=== PATIENT | male | born 1950 | race Caucasian/White ===

== ENCOUNTER 2017-08-20 12:18 | Inpatient (IN) | payer MEDICARE, MEDICAID ==
[~2017-08-20] VITALS: Ht 170.2 cm; Wt 72.6 kg
--- NOTE | 2017-08-20 12:35 | NUR ---
PT FROM THE ED HALLWAY WAITING AREA TO ED BED 08. PT WAS BB PRIVATE EMS FROM [facility] FOR NEEMA RECTAL ABSCESS SINCE THE WEEKEND. NAD VSS RR EVEN AND UNLABORED. SKIN IS WARM AND NON DIAPHROETIC, PENDING ER MD EVALUATION
[2017-08-20 13:28] LABS: BASOPHILS # (AUTO) 0.3 /CMM (0.0-0.2); BASOPHILS % (AUTO) 1.7 % (0.0-2.0); EOSINOPHILS % (AUTO) 0.6 % (0.0-6.0); HEMATOCRIT 41 % (39-51); HEMOGLOBIN 13.9 g/dL (13.5-17.5); LYMPHOCYTES # (AUTO) 1.5 /CMM (0.8-4.8); LYMPHOCYTES % (AUTO) 10.2 % (20.0-44.0); MEAN CORPUSCULAR HGB CONC 35 g/dl (31.0-36.0); MEAN CORPUSCULAR VOLUME 88 fL (80-96); MONOCYTES # (AUTO) 0.9 /CMM (0.1-1.30); MONOCYTES % (AUTO) 5.7 % (2.0-12.0); NEUTROPHILS # (AUTO) 12.4 /CMM (1.8-8.9); NEUTROPHILS % (AUTO) 81.8 % (43.0-81.0); PLATELET COUNT (AUTO) 399 /CMM (150-450); RDW COEFFICIENT OF VARIATION 13.2 (11.5-15.0); WHITE BLOOD COUNT (AUTO) 15.2 K/uL (4.3-11.0)
[2017-08-20] MEDS ORDERED: IV NS 0.9% 500 ML BAG IV ONE (13:30)
[2017-08-20 13:39] LABS: CALCIUM, SERUM 9.8 mg/dL (8.5-10.1); CARBON DIOXIDE 24 mmol/L (21-32); CHLORIDE 100 mmol/L (98-107); CREATININE 0.7 mg/dL (0.6-1.3); GLUCOSE 176 mg/dL (74-106); POTASSIUM 3.5 mmol/L (3.5-5.1); SODIUM SERUM 137 mmol/L (136-145); UREA NITROGEN, BLOOD 11 mg/dL (7-18)
[2017-08-20 13:42] LABS: INR 1.06 (0.85-1.15)
[2017-08-20 13:44] LABS: ALANINE AMINOTRANSFERASE 18 U/L (12-78); ALBUMIN 3.1 g/dL (3.4-5.0); ALKALINE PHOSPHATASE 66 U/L (46-116); ASPARTATE AMINOTRANSFERASE 12 U/L (15-37); BILIRUBIN,DIRECT 0.2 mg/dL (0.0-0.2); BILIRUBIN,TOTAL 0.5 mg/dL (0.2-1.0); TOTAL PROTEIN, SERUM 8.6 g/dL (6.4-8.2)
[2017-08-20 13:47] LABS: TROPONIN I < 0.017 ng/mL (0.00-0.056)
--- NOTE | 2017-08-20 14:05 | NUR ---
XRAY in progress at BS.
[2017-08-20] MEDS ORDERED: IV NS 0.9% 1,000 ML BAG IV ONE (14:30)
[2017-08-20 14:45] LABS: BAND % (MANUAL) 2 % (0.0-5.0); LYMPHOCYTES % (MANUAL) 16 % (16-48); MONOCYTES % (MANUAL) 9 % (0-11.0); NEUTROPHILS % (MANUAL) 73 (42-76)
[2017-08-20] MEDS ORDERED: IOHEXOL-300 100 ML VIAL IV ONE (14:50)
[2017-08-20] MEDS ORDERED: IV NS 0.9% 250 ML IV ONE (14:50)
[2017-08-20] MEDS ORDERED: VANCOMYCIN 1 GM in IV D5W 250 ML IV ONE (15:00)
[2017-08-20] MEDS ORDERED: PIPERACILLIN /TAZOBACTAM 3.375 G in IV D5W 50 ML IV ONE (15:00)
--- NOTE | 2017-08-20 15:00 | NUR ---
DR DAIGLE AT FOR WOUND CARE.
[2017-08-20] MEDS ORDERED: METF-442 PO (15:20)
[2017-08-20] MEDS ORDERED: NA P133E RC (15:20)
[2017-08-20] MEDS ORDERED: PIOG15TA8 PO (15:20)
[2017-08-20] MEDS ORDERED: ACET-868 PO (15:20)
[2017-08-20] MEDS ORDERED: APIX5TAB PO (15:20)
[2017-08-20] MEDS ORDERED: ATOR40TA PO (15:20)
[2017-08-20] MEDS ORDERED: MAGN400O6 GT (15:20)
[2017-08-20] MEDS ORDERED: DOCU100C36 PO (15:20)
[2017-08-20] MEDS ORDERED: BISA10SU8 RC (15:20)
[2017-08-20] MEDS ORDERED: DONE5TAB34 PO (15:20)
[2017-08-20] MEDS ORDERED: INSU100I30 SQ (15:20)
[2017-08-20] MEDS ORDERED: MEMA10TA PO (15:20)
--- NOTE | 2017-08-20 15:45 | NUR ---
Patient is resting comfortably in bed with eyes closed. Easily aroused. VSS
--- NOTE | 2017-08-20 16:23 | NUR ---
CALLED NURSING SUP. FOR MS BED
--- NOTE | 2017-08-20 16:25 | NUR ---
Patient is resting comfortably in bed with eyes closed. Easily aroused. VSS
--- NOTE | 2017-08-20 16:34 | NUR ---
CE PAGED, TERESA STERLING CVICU RN
[2017-08-20] MEDS ORDERED: LORAZEPAM INJ 2 MG/ML VIAL ONE (17:17)
--- NOTE | 2017-08-20 17:24 | NUR ---
REPORT GIVEN TO CINDY RODRIGUEZ FOR LEVY MS [id number]
[2017-08-20] MEDS ORDERED: LORAZEPAM INJ 2 MG/ML VIAL IV ONE (17:30)
[2017-08-20] MEDS ORDERED: MAGNESIUM HYDROXIDE 30 ML UDC GT PRN (18:30)
[2017-08-20] MEDS ORDERED: Z GUARD REMEDY 2 OZ OINT TP PRN (18:30)
[2017-08-20] MEDS ORDERED: DEXTROSE 50%-WATER 50 ML DISP.SYRIN IV PRN (18:30)
[2017-08-20] MEDS ORDERED: ONDANSETRON HCL/PF 4 MG/2 ML VIAL IVP PRN (18:30)
[2017-08-20] MEDS ORDERED: ACETAMINOPHEN 325 MG TABLET PO PRN (18:30)
[2017-08-20 18:37] VITALS: BP 133/74
[2017-08-20] MEDS ORDERED: APIXABAN 5 MG TABLET PO ONE (18:45)
--- NOTE | 2017-08-20 19:30 | NUR ---
MSRN FULLY AWAKE, DISCONNECTED FROM IV. WANTED TO GO AROUND HALLWAYS VIA WHEELCHAIR WITH HIS FRIEND. LEFT SHOULDER DRESSING DRY AND INTACT. TO CONTINUE.
--- NOTE | 2017-08-20 19:35 | NUR ---
MSRN FULLY AWAKE, PLEASANTLY CONFUSED. WAS MOVED TO ROOM 309-1. BED ALARM ON, SAFETY PRECAUTIONS EMPHASIZED, APPEARS TO UNDERSTAND, PATIENT IS FORGETFUL. NEEDS CLOSE OBSERVATION. REFUSED TO EAT LATE DINNER.
[2017-08-20 20:00] VITALS: BP 137/74
--- NOTE | 2017-08-20 20:30 | NUR ---
MSRN AGREED TO EAT SANDWICH AND JUICE, PATIENT IS DIABETIC. BLOOD SUGAR PRIOR TO DINNER WAS 161. WILL GIVE INSULIN COVERAGE. TRIED TO GET OOB EARLIER WITHOUT CALLING, UNSTEADY GAIT, HFR. PROVIDED FFW. VOIDED FREELY. ASSISTED BACK TO BED BY EXCAVATING MACHINE OPERATOR. CLOSELY WATCHED. KEPT COMFORTABLE, CALL LIGHT USE REVIEWED WITH PATIENT, STATED HE UNDERSTOOD. BED ALARM ON.
--- NOTE | 2017-08-20 20:57 | NUR ---
MSRN VERBALIZES SEVERE LEFT SHOULDER PAIN, DILAUDED 1MG IVP ADMINISTERED VIA RIGHT UPPER ARM PICC LINE. BEDREST INSTRUCTED, FRIEND AT BEDSIDE.
--- NOTE | 2017-08-20 21:40 | NUR ---
MSRN DUE MEDS ADMINISTERED. NO OTHER NEEDS MADE, SAFETY AWARENESS REMINDED. NEEDS CLOSER OBSERVATION
[2017-08-20] MEDS: DONEPEZIL 5 MG TABLET PO SCH (21:43)
[2017-08-20] MEDS: ATORVASTATIN 40 MG TABLET PO SCH (21:43)
[2017-08-20] MEDS: BLOOD SUGAR DIAGNOSTIC 1 EACH STRIP IN SCH (21:43)
[2017-08-20] MEDS: INSULIN REGULAR, HUMAN 100 UNIT/ML 3 ML VIAL SQ PRN (21:47)
[2017-08-20] MEDS ORDERED: ZOLPIDEM TARTRATE 5 MG TABLET PO PRN (22:00)
--- NOTE | 2017-08-21 01:00 | NUR ---
MSRN SLEPT GOOD, APPEARS COMFORTABLE
--- NOTE | 2017-08-21 05:30 | NUR ---
MSRN AWAKENED BY BLOOD DRAW, BS WAS 160. REFUSED TO HAVE INSULIN SHOT. STATED MADE HIM FEEL WEAKER.. AM CARE STARTED BY INDUSTRIAL PHOTOGRAPHER, RIGHT BUTTOCK DRESSING OFF, AGREED TO HAVE PICTURES TAKEN. SITE CLEANSED WITH MOIST SALINE, PAT DRY. REPLACED BY 4X4 STERILE DRESSING SECURELY TAPED. PATIENT INSTRUCTED NOT TO TOUCH. APPEARS TO UNDERSTAND. LUMP REDDENED SEEN ON PUBIC AREA, APPEARS TO BE ANOTHER BOIL. ANOTHER ON LEFT BUTTOCK APPEARS TO BE BOIL REDNESS AROUND SITE BLACKISH IN THE MIDDLE. PATIENT BEGINNING TO BE RESISTIVE. REPOSITIONS SELF FOR COMFORT.
[2017-08-21 06:31] LABS: BASOPHILS # (AUTO) 0.1 /CMM (0.0-0.2); BASOPHILS % (AUTO) 0.6 % (0.0-2.0); EOSINOPHILS % (AUTO) 1.4 % (0.0-6.0); HEMATOCRIT 34 % (39-51); HEMOGLOBIN 11.7 g/dL (13.5-17.5); LYMPHOCYTES # (AUTO) 1.5 /CMM (0.8-4.8); LYMPHOCYTES % (AUTO) 13.4 % (20.0-44.0); MEAN CORPUSCULAR HGB CONC 34 g/dl (31.0-36.0); MEAN CORPUSCULAR VOLUME 90 fL (80-96); MONOCYTES % (AUTO) 8.4 % (2.0-12.0); NEUTROPHILS # (AUTO) 8.6 /CMM (1.8-8.9); NEUTROPHILS % (AUTO) 76.2 % (43.0-81.0); PLATELET COUNT (AUTO) 320 /CMM (150-450); RDW COEFFICIENT OF VARIATION 14.4 (11.5-15.0); RED BLOOD CELL COUNT(AUTO) 3.79 MIL/uL (4.5-6.0); WHITE BLOOD COUNT (AUTO) 11.3 K/uL (4.3-11.0)
[2017-08-21 06:40] LABS: ALBUMIN 2.5 g/dL (3.4-5.0); BILIRUBIN,TOTAL 0.5 mg/dL (0.2-1.0); CALCIUM, SERUM 8.4 mg/dL (8.5-10.1); CREATININE 0.5 mg/dL (0.6-1.3); MAGNESIUM 1.8 mg/dL (1.8-2.4); PHOSPHORUS 3.7 mg/dL (2.5-4.9); POTASSIUM 3.1 mmol/L (3.5-5.1); TOTAL PROTEIN, SERUM 6.6 g/dL (6.4-8.2)
--- NOTE | 2017-08-21 06:43 | NUR ---
MSRN RESTING QUIETLY, STILL REFUSES INSULIN COVERAGE. REMAINS CONFUSED, CALM THIS TIME.
[2017-08-21 06:46] LABS: THYROID STIMULATING HORMONE 2.311 uIU/mL (0.358-3.74)
[2017-08-21] MEDS: BLOOD SUGAR DIAGNOSTIC 1 EACH STRIP IN SCH ×4 (07:30→21:59)
--- NOTE | 2017-08-21 07:55 | NUR ---
RN OPENING NOTES RECEIVED PT. PT STABLE IN BED. A/OX2, PT IS CONFUSED. NO S/S OF RESP DISTRESS. PT DOES NOT APPEAR TO BE IN PAIN AT THE MOMENT. PT IS SCHEDULED TO HAVE WOUND CONSULT IN AM. IV ACCESS LOCATED ON LEFT FA 20G, SL. SAFETY MEASURES IN PLACE, CALL LIGHT WITHIN REACH. WILL CONTINUE TO MONITOR.
[2017-08-21 08:00] VITALS: BP 132/71
[2017-08-21] MEDS: INSULIN GLARGINE, 100 UNIT/ML CARTRIDGE SQ SCH (08:49)
[2017-08-21] MEDS: MEMANTINE HCL 5 MG TABLET PO SCH ×2 (08:49→16:49)
[2017-08-21] MEDS: PIOGLITAZONE HCL 15 MG TABLET PO SCH (09:00)
[2017-08-21] MEDS ORDERED: APIXABAN 5 MG TABLET PO SCH (09:00)
--- NOTE | 2017-08-21 10:12 | NUR ---
WOUND CARE CONSULT: PT PRESENTS WITH SURGICAL DRESSING TO PERIRECTAL AREA WHICH IS DRY AND INTACT. CALL IN TO DR ALANA DAIGLE FOR DRESSING CHANGE ORDERS (MSG LEFT). PT NOTED TO HAVE BUMPS WITHOUT DRAINAGE TO PUBIC AREA AND RT BUTTOCK, PRESENT ON ADMISSION. DEFER TO SURGEON. PT IS INDEPENDENT WITH BED MOBILITY AND CONTINENT AT THIS TIME. RASH NOTED TO PERINEUM AND INNER THIGHS. RECOMMENDATIONS MADE FOR RASH CARE AND DISCUSSED WITH NURSING STAFF. WILL SEE PRN. CEJA IN AGREEMENT WITH PLAN OF CARE. Addendum: 08/21/17 at 1015 by ALCIDES AVILA WNDNU Amended: Links added.
--- NOTE | 2017-08-21 10:42 | NUR ---
RN NOTES PT UNCOOPERATIVE AND UNWILLING TO TAKE AM MEDS. WILL CONTINUE TO ATTEMPT TO GAIN COOPERATION FROM PT.
[2017-08-21] MEDS: POTASSIUM CHLORIDE 20 MEQ TAB.PRT.SR PO SCH ×2 (10:59→11:00)
[2017-08-21] MEDS: INSULIN REGULAR, HUMAN 100 UNIT/ML 3 ML VIAL SQ PRN ×3 (12:07→22:23)
[2017-08-21] MEDS ORDERED: POTASSIUM CHLORIDE 20 MEQ TAB.PRT.SR PO SCH (12:30)
--- NOTE | 2017-08-21 13:05 | NUR ---
WOUND CARE: RECEIVED ORDERS FROM DR DAIGLE AND DISCUSSED WITH NURSING STAFF.
[2017-08-21] MEDS: DAKINS QUARTER STRENGTH (0.125%) 480 ML BOTTLE TOP SCH (13:30)
--- NOTE | 2017-08-21 13:56 | NUR ---
RN NOTES [facility] FOR WOUND CARE NOT ADMINISTERED. AWAITING DELIVERY OF MED FROM PHARMACY. WILL F/U.
--- NOTE | 2017-08-21 14:50 | NUR ---
RN NOTES PT C/O WHEEZING, BREATHING IS EVEN HOWEVER LABORED. RT CALLED TO ADMIN BREATHING TX. WILL CONTINUE TO MONITOR.
[2017-08-21 16:00] VITALS: BP 120/72
[2017-08-21] MEDS: APIXABAN 5 MG TABLET PO SCH (16:59)
[2017-08-21] MEDS: HYDROCODONE/APAP 10/325MG 1 EA TABLET PO PRN (16:59)
[2017-08-21] MEDS: CLOTRIMAZOLE 1% 15 GM TUBE TP SCH (17:00)
--- NOTE | 2017-08-21 18:31 | NUR ---
RN CLOSING NOTES PT IN BED RESTING. NO S/S OF RESP DISTRESS OR SOB. NO C/O PAIN AT THIS TIME. PT REFUSING SOME PO MEDS AND TXS THROUGHOUT SHIFT. PT REMAINS CONFUSED AND ANXIOUS. WOUND CONSULT PERFORMED WITH NEW WOUND DRESSING CHANGE ORDERS. PT REFUSED DRESSING CHANGE AT APPROXIMATELY 1800. ALL PT NEEDS ANTICIPATED AND MET, SAFETY MEASURES IN PLACE, CALL LIGHT WITHIN REACH. WILL ENDORSE TO BRANCH CREDIT COUNSELOR FOR LEVY.
--- NOTE | 2017-08-21 19:30 | NUR ---
MSRN FULLY AWAKE, NO NEEDS FOR NOW. OUTGOING RN INFORMED DR. CORREA REGARDING NEED FOR FURTHER IV ANTIBIOTICS, WAITING FOR FURTHER ORDERS.
[2017-08-21 20:00] VITALS: BP 127/69
--- NOTE | 2017-08-21 21:00 | NUR ---
MSRN ORDERS RECEIVED FROM DR STERLING FOR ANTIBIOTICS. AWAITING FOR VERIFICATION.
[2017-08-21] MEDS ORDERED: PIPERACILLIN /TAZOBACTAM 3.375 G VIAL IV ONE (21:23)
[2017-08-21] MEDS ORDERED: VANCOMYCIN 1 GM in IV D5W 250 ML IV STA (21:28)
[2017-08-21] MEDS ORDERED: VANCOMYCIN 1 GM VIAL ONE (21:39)
[2017-08-21] MEDS: PIPERACILLIN /TAZOBACTAM 3.375 G in IV D5W 50 ML IV SCH (21:58)
[2017-08-21] MEDS: DONEPEZIL 5 MG TABLET PO SCH (21:59)
[2017-08-21] MEDS: ATORVASTATIN 40 MG TABLET PO SCH (22:00)
[2017-08-21] MEDS: MORPHINE SULFATE INJ 4 MG/ML DISP.SYRIN IV PRN (22:21)
--- NOTE | 2017-08-22 01:00 | NUR ---
MSRN SLEPT WELL, NO NEEDS MADE.
[2017-08-22] MEDS ORDERED: PIPERACILLIN /TAZOBACTAM 3.375 G VIAL IV ONE (04:07)
[2017-08-22] MEDS: PIPERACILLIN /TAZOBACTAM 3.375 G in IV D5W 50 ML IV SCH (04:58)
[2017-08-22 06:18] LABS: BASOPHILS % (AUTO) 0.6 % (0.0-2.0); EOSINOPHILS % (AUTO) 1.6 % (0.0-6.0); HEMATOCRIT 35 % (39-51); HEMOGLOBIN 12.1 g/dL (13.5-17.5); LYMPHOCYTES # (AUTO) 1.3 /CMM (0.8-4.8); LYMPHOCYTES % (AUTO) 16.5 % (20.0-44.0); MEAN CORPUSCULAR HGB CONC 34 g/dl (31.0-36.0); MEAN CORPUSCULAR VOLUME 90 fL (80-96); MONOCYTES # (AUTO) 0.6 /CMM (0.1-1.30); MONOCYTES % (AUTO) 7.4 % (2.0-12.0); NEUTROPHILS # (AUTO) 5.9 /CMM (1.8-8.9); NEUTROPHILS % (AUTO) 73.9 % (43.0-81.0); PLATELET COUNT (AUTO) 311 /CMM (150-450); RDW COEFFICIENT OF VARIATION 14.4 (11.5-15.0); RED BLOOD CELL COUNT(AUTO) 3.92 MIL/uL (4.5-6.0)
[2017-08-22 06:40] LABS: CALCIUM, SERUM 8.5 mg/dL (8.5-10.1); CREATININE 0.6 mg/dL (0.6-1.3); MAGNESIUM 1.9 mg/dL (1.8-2.4); PHOSPHORUS 3.4 mg/dL (2.5-4.9); POTASSIUM 3.3 mmol/L (3.5-5.1)
[2017-08-22] MEDS: BLOOD SUGAR DIAGNOSTIC 1 EACH STRIP IN SCH ×4 (06:42→21:31)
[2017-08-22] MEDS: INSULIN REGULAR, HUMAN 100 UNIT/ML 3 ML VIAL SQ PRN ×3 (06:42→22:03)
--- NOTE | 2017-08-22 07:00 | NUR ---
MSCINDY BS WAS 209 COVERED WITH 4 UNITS OF REG INS SQ. HAS BEEN COOPERATIVE. STATED MORPHINE ADMINISTERED LAST NIGHT FOR HIS RIGHT BUTTOCK WOUND HELPED HIS PAIN. KEPT COMFORTABLE. CLOSELY WATCHED.
[2017-08-22] MEDS ORDERED: FEE PK DOSING 1 MIN EA MC ONE (07:33)
[2017-08-22 08:00] VITALS: BP 132/79
[2017-08-22] MEDS: MEMANTINE HCL 5 MG TABLET PO SCH ×2 (08:42→16:31)
[2017-08-22] MEDS: APIXABAN 5 MG TABLET PO SCH ×2 (08:42→16:11)
[2017-08-22] MEDS: INSULIN GLARGINE, 100 UNIT/ML CARTRIDGE SQ SCH (08:43)
[2017-08-22] MEDS: PIOGLITAZONE HCL 15 MG TABLET PO SCH (08:43)
[2017-08-22] MEDS: CLOTRIMAZOLE 1% 15 GM TUBE TP SCH ×2 (08:45→16:31)
[2017-08-22] MEDS: DAKINS QUARTER STRENGTH (0.125%) 480 ML BOTTLE TOP SCH (09:00)
[2017-08-22] MEDS ORDERED: POTASSIUM CHLORIDE 20 MEQ TAB.PRT.SR PO ONE (10:00)
[2017-08-22] MEDS: HYDROCODONE/APAP 10/325MG 1 EA TABLET PO PRN (10:48)
[2017-08-22] MEDS: VANCOMYCIN 1 GM in IV D5W 250 ML IV SCH ×2 (10:48→21:34)
[2017-08-22] MEDS ORDERED: PIPERACILLIN /TAZOBACTAM 3.375 G in IV D5W 50 ML IV SCH (12:00)
--- NOTE | 2017-08-22 13:00 | NUR ---
RN NOTES PT REFUSING REGULAR INSULIN ADMIN STATING THAT INSULIN "MAKES ME CONFUSED". WILL CONTINUE TO MONITOR BS.
[2017-08-22] MEDS: MORPHINE SULFATE INJ 4 MG/ML DISP.SYRIN IV PRN (15:46)
[2017-08-22 16:00] VITALS: BP 123/78
[2017-08-22] MEDS ORDERED: LORAZEPAM INJ 2 MG/ML VIAL IV PRN (17:00)
--- NOTE | 2017-08-22 18:34 | NUR ---
RN CLOSING NOTE PT IN BED RESTING. NO S/S OF RESP DISTRESS/SOB. PT REMAINS CONFUSED. IV ACCESS LOCATED ON LEFT FA 20G CURRENTLY SL. PT HAD BOUT OF CONFUSION AT APPROX 1630. MAKING STATEMENTS SUCH " DONT KNOW MY NAME BUT I KNOW MY NAME. PRN ATIVAN ORDER OBTAINED, HOWEVER NOT ADMIN. ABLE TO CALM PATIENT THROUGH REORIENTATION. ALL PT NEEDS ANTICIPATED AND MET, SAFETY MEASURES IN PLACE, CALL LIGHT IN REACH. WILL ENDORSE TO TRIGONOMETRY TUTOR FOR LEVY.
[2017-08-22 20:00] VITALS: BP 112/61
[2017-08-22] MEDS: DONEPEZIL 5 MG TABLET PO SCH (21:31)
[2017-08-22] MEDS: ATORVASTATIN 40 MG TABLET PO SCH (21:31)
[2017-08-23 06:33] LABS: BASOPHILS % (AUTO) 0.3 % (0.0-2.0); EOSINOPHILS % (AUTO) 1.2 % (0.0-6.0); HEMATOCRIT 34 % (39-51); HEMOGLOBIN 11.7 g/dL (13.5-17.5); LYMPHOCYTES # (AUTO) 1.6 /CMM (0.8-4.8); LYMPHOCYTES % (AUTO) 16.1 % (20.0-44.0); MEAN CORPUSCULAR HGB CONC 34 g/dl (31.0-36.0); MEAN CORPUSCULAR VOLUME 90 fL (80-96); MONOCYTES # (AUTO) 0.7 /CMM (0.1-1.30); MONOCYTES % (AUTO) 6.8 % (2.0-12.0); NEUTROPHILS # (AUTO) 7.5 /CMM (1.8-8.9); NEUTROPHILS % (AUTO) 75.6 % (43.0-81.0); PLATELET COUNT (AUTO) 311 /CMM (150-450); RDW COEFFICIENT OF VARIATION 14.2 (11.5-15.0); RED BLOOD CELL COUNT(AUTO) 3.77 MIL/uL (4.5-6.0); WHITE BLOOD COUNT (AUTO) 9.9 K/uL (4.3-11.0)
[2017-08-23] MEDS: BLOOD SUGAR DIAGNOSTIC 1 EACH STRIP IN SCH ×4 (06:35→21:28)
[2017-08-23] MEDS: INSULIN REGULAR, HUMAN 100 UNIT/ML 3 ML VIAL SQ PRN ×4 (06:36→21:28)
[2017-08-23 06:47] LABS: CALCIUM, SERUM 8.4 mg/dL (8.5-10.1); CREATININE 0.6 mg/dL (0.6-1.3); MAGNESIUM 1.9 mg/dL (1.8-2.4); PHOSPHORUS 3.1 mg/dL (2.5-4.9); POTASSIUM 3.6 mmol/L (3.5-5.1)
--- NOTE | 2017-08-23 06:49 | NUR ---
MS RN NOTES AWAKE & RESPONSIVE. NOT IN ANY DISTRESS. NO SOB NOTED. DENIES ANY PAIN OR DISCOMFORT AT THIS TIME. MONITORED ACCORDINGLY. AM CARE DONE. CALL LIGHT WITHIN REACH. BED IN LOWEST POSITION. SR UP X 2 FOR SAFETY WITH BED ALARM ON. WILL ENDORSE TO NEXT SHIFT.
--- NOTE | 2017-08-23 07:15 | NUR ---
RN NOTES PT IS LAYING DOWN IN BED, AWAKE AND ALERT. PT IS CONFUSED, NEEDS REORIENTING OF HIS NAME. PT ON RA, RESPIRATIONS ARE EVEN AND UNLABORED. NO IV ACCESS AT THIS TIME, PULLED OUT, WILL INSERT NEW IV. NO SIGNS OF DISTRESS NOTED. SAFETY MEASURES ARE IN PLACE, CALL LIGHT IS IN REACH. WILL CONTINUE TO MONITOR.
[2017-08-23 08:00] VITALS: BP 125/72
[2017-08-23] MEDS: APIXABAN 5 MG TABLET PO SCH ×2 (08:06→16:08)
[2017-08-23] MEDS: MEMANTINE HCL 5 MG TABLET PO SCH ×2 (08:06→16:08)
[2017-08-23] MEDS: PIOGLITAZONE HCL 15 MG TABLET PO SCH (08:06)
[2017-08-23] MEDS: DAKINS QUARTER STRENGTH (0.125%) 480 ML BOTTLE TOP SCH (08:08)
[2017-08-23] MEDS: INSULIN GLARGINE, 100 UNIT/ML CARTRIDGE SQ SCH (08:08)
[2017-08-23] MEDS: CLOTRIMAZOLE 1% 15 GM TUBE TP SCH ×2 (08:13→16:09)
[2017-08-23] MEDS: VANCOMYCIN 1 GM in IV D5W 250 ML IV SCH (09:45)
[2017-08-23 16:00] VITALS: BP 124/57
[2017-08-23] MEDS: VANCOMYCIN 0.75 GM in IV D5W 250 ML IV SCH (17:12)
--- NOTE | 2017-08-23 18:33 | NUR ---
RN NOTES PT IS SITTING UP IN BED, AWAKE AND RESTING COMFORTABLY. PT ON RA, RESPIRATIONS ARE EVEN AND UNLABORED. IV ON R WRIST INTACT AND SL. ALL MEDS WERE GIVEN ORDERED AND WOUND CARE DONE FOR PERIANAL ABSCESS. 1730 ACCUCHECK WAS 275, 6 UNITS OF INSULIN GIVEN ORDERED. ALL PT NEEDS ANTICIPATED FOR AND MET. NO SIGNS OF DISTRESS NOTED. SAFETY MEASURES ARE IN PLACE, CALL LIGHT IS IN REACH. WILL ENDORSE TO AIRPLANE ENGINEER RN FOR CONTINUITY OF CARE.
[2017-08-23 20:00] VITALS: BP 102/60
[2017-08-23] MEDS: HYDROCODONE/APAP 10/325MG 1 EA TABLET PO PRN (20:19)
[2017-08-23] MEDS: DONEPEZIL 5 MG TABLET PO SCH (21:28)
[2017-08-23] MEDS: ATORVASTATIN 40 MG TABLET PO SCH (21:28)
[2017-08-24] MEDS: VANCOMYCIN 0.75 GM in IV D5W 250 ML IV SCH ×3 (02:00→18:24)
--- NOTE | 2017-08-24 06:21 | NUR ---
MS RN NOTES AWAKE & RESPONSIVE. NOT IN ANY DISTRESS. NO SOB NOTED. DENIES ANY PAIN OR DISCOMFORT AT THIS TIME. WITH IV-HL PATENT & INTACT. MONITORED ACCORDINGLY. AM CARE DONE. CALL LIGHT WITHIN REACH. BED IN LOWEST POSITION. SR UP X 2 FOR SAFETY WITH BED ALARM ON. WILL ENDORSE TO NEXT SHIFT.
[2017-08-24] MEDS: BLOOD SUGAR DIAGNOSTIC 1 EACH STRIP IN SCH ×4 (06:33→21:22)
[2017-08-24] MEDS: INSULIN REGULAR, HUMAN 100 UNIT/ML 3 ML VIAL SQ PRN ×4 (06:34→21:26)
[2017-08-24 06:43] LABS: BASOPHILS # (AUTO) 0.1 /CMM (0.0-0.2); BASOPHILS % (AUTO) 0.7 % (0.0-2.0); EOSINOPHILS % (AUTO) 2.2 % (0.0-6.0); HEMATOCRIT 36 % (39-51); HEMOGLOBIN 12.3 g/dL (13.5-17.5); LYMPHOCYTES # (AUTO) 1.9 /CMM (0.8-4.8); LYMPHOCYTES % (AUTO) 21.9 % (20.0-44.0); MEAN CORPUSCULAR HGB CONC 34 g/dl (31.0-36.0); MEAN CORPUSCULAR VOLUME 91 fL (80-96); MONOCYTES # (AUTO) 0.7 /CMM (0.1-1.30); MONOCYTES % (AUTO) 7.7 % (2.0-12.0); NEUTROPHILS # (AUTO) 5.8 /CMM (1.8-8.9); NEUTROPHILS % (AUTO) 67.5 % (43.0-81.0); PLATELET COUNT (AUTO) 318 /CMM (150-450); RED BLOOD CELL COUNT(AUTO) 3.94 MIL/uL (4.5-6.0); WHITE BLOOD COUNT (AUTO) 8.6 K/uL (4.3-11.0)
[2017-08-24 06:49] LABS: CALCIUM, SERUM 8.4 mg/dL (8.5-10.1); CREATININE 0.6 mg/dL (0.6-1.3); PHOSPHORUS 2.9 mg/dL (2.5-4.9); POTASSIUM 3.6 mmol/L (3.5-5.1)
[2017-08-24 08:00] VITALS: BP 131/76
--- NOTE | 2017-08-24 08:00 | NUR ---
RN NOTES RECEIVED PATIENT IN THE BED, A/O X2/3, WITH CONFUSION, FORGETFUL, REALITY ORIENTED, PATIENT HAS NO RESPIRATORY DISTRESS, V/S STABLE, SCHEDULED MEDICATION ADMINISTERED, PATIENT REFUSED PAIN AT THIS TIME. IV RIGHT FOREARM HEP LOCK INTACT. NEEDS ATTENDED AND ANTICIPATED, CALL LIGHT WITHIN TO REACH, CONTINUED MONITORING.
[2017-08-24] MEDS: PIOGLITAZONE HCL 15 MG TABLET PO SCH (09:00)
[2017-08-24] MEDS: APIXABAN 5 MG TABLET PO SCH ×2 (09:00→18:14)
[2017-08-24] MEDS: MEMANTINE HCL 5 MG TABLET PO SCH ×2 (09:00→18:14)
[2017-08-24] MEDS: INSULIN GLARGINE, 100 UNIT/ML CARTRIDGE SQ SCH (09:01)
[2017-08-24] MEDS: DAKINS QUARTER STRENGTH (0.125%) 480 ML BOTTLE TOP SCH (09:02)
[2017-08-24] MEDS: CLOTRIMAZOLE 1% 15 GM TUBE TP SCH ×2 (09:02→18:15)
--- NOTE | 2017-08-24 12:23 | NUR ---
RN NOTES BS-235 MG/DL COVERAGE GIVEN, INFUSING VANCOMYCIN AT THIS TIME RIGHT FOREARM INTACT, PATIENT EATING LUNCH. CALL LIGHT WITHIN TO REACH, SAFETY PRECAUTION MAINTAINED ALL THE TIME.
[2017-08-24 16:00] VITALS: BP 128/73
--- NOTE | 2017-08-24 18:30 | NUR ---
RN NOTES PATIENT IN THE BED A/O X3 WITH CONFUSION, TALKING SELF. SCHEDULED MEDICATION ADMINISTERED, BS-160 MG/DL, COVERAGE GIVEN, V/S STABLE, NEEDS ATTENDED AND ANTICIPATED. CALL LIGHT WITHIN TO REACH, CONTINUED MONITORING. ENDORSED ONCOMING NURSE FOR LEVY.
--- NOTE | 2017-08-24 19:00 | NUR ---
RN NOTES RECEIVE PT IN BED A/O X1, NO S/S OF DISTRESS, STABLE, SAFETY MEASURES IN PLACE, CALL LIGHT WITHIN REACH, WILL CONTINUE TO MONITOR.
[2017-08-24 20:00] VITALS: BP 125/75
[2017-08-24] MEDS: ATORVASTATIN 40 MG TABLET PO SCH (21:15)
[2017-08-24] MEDS: DONEPEZIL 5 MG TABLET PO SCH (21:16)
[2017-08-25] MEDS: VANCOMYCIN 0.75 GM in IV D5W 250 ML IV SCH ×2 (01:42→09:20)
[2017-08-25] MEDS: BLOOD SUGAR DIAGNOSTIC 1 EACH STRIP IN SCH ×2 (05:49→12:17)
[2017-08-25] MEDS: INSULIN REGULAR, HUMAN 100 UNIT/ML 3 ML VIAL SQ PRN ×2 (05:56→12:19)
--- NOTE | 2017-08-25 06:30 | NUR ---
MS RN NOTES PT ASLEEP COMFORTABLY IN BED AND EASILY AWAKEN HEAD OF BED ELEVATED FOR BETTER LUNG EXPANSION AND GOOD CIRCULATION. TOLERATING ROOM AIR 98% NOT IN RESPIRATORY DISTRESS.. STABLE CONDITION. AFEBRILE. NO ACUTE CHANGES THROUGHOUT THE SHIFT. PT KEPT CLEAN AND DRY AND COMFORT. NURSING CARE RENDERED. NEEDS ATTENDED AND ANTICIPATED. GOOD SKIN CARE PROVIDED. ASSISTED REPOSITION EVERY 2 HOURS FOR COMFORT. ON LOW BED TO ENSURE SAFETY, CALL LIGHT WITHIN REACH, WILL ENDORSE TO THE NEXT SHIFT CONTINUE PLAN OF CARE
[2017-08-25 07:02] LABS: BASOPHILS # (AUTO) 0.1 /CMM (0.0-0.2); BASOPHILS % (AUTO) 0.7 % (0.0-2.0); EOSINOPHILS % (AUTO) 2.1 % (0.0-6.0); HEMATOCRIT 35 % (39-51); HEMOGLOBIN 12.1 g/dL (13.5-17.5); LYMPHOCYTES # (AUTO) 1.5 /CMM (0.8-4.8); LYMPHOCYTES % (AUTO) 14.1 % (20.0-44.0); MEAN CORPUSCULAR HGB CONC 34 g/dl (31.0-36.0); MEAN CORPUSCULAR VOLUME 90 fL (80-96); MONOCYTES # (AUTO) 0.7 /CMM (0.1-1.30); MONOCYTES % (AUTO) 6.5 % (2.0-12.0); NEUTROPHILS # (AUTO) 8.1 /CMM (1.8-8.9); NEUTROPHILS % (AUTO) 76.6 % (43.0-81.0); PLATELET COUNT (AUTO) 317 /CMM (150-450); RDW COEFFICIENT OF VARIATION 14.2 (11.5-15.0); RED BLOOD CELL COUNT(AUTO) 3.89 MIL/uL (4.5-6.0); WHITE BLOOD COUNT (AUTO) 10.5 K/uL (4.3-11.0)
--- NOTE | 2017-08-25 07:40 | NUR ---
MS RN NOTES PT RESTING IN BED COMFORTABLY IN BED AND EASILY AROUSABLE DURING CARE, ATTEMPTING TO GET OUT OF BED, REORIENTED NEEDED. RESPIRATIONS EVEN AND UNLABORED, TOLERATING ROOM AIR 98% NOT IN RESPIRATORY DISTRESS. STABLE CONDITION. PT KEPT CLEAN AND DRY AND COMFORTABLE. BED IN LOWEST POSITION, TO ENSURE SAFETY, CALL LIGHT WITHIN REACH, WILL CONTINUE TO MONITOR
[2017-08-25 07:46] LABS: CALCIUM, SERUM 8.5 mg/dL (8.5-10.1); CREATININE 0.5 mg/dL (0.6-1.3); PHOSPHORUS 3.2 mg/dL (2.5-4.9); POTASSIUM 3.6 mmol/L (3.5-5.1)
[2017-08-25 08:00] VITALS: BP 121/75
[2017-08-25] MEDS: MEMANTINE HCL 5 MG TABLET PO SCH (08:35)
[2017-08-25] MEDS: APIXABAN 5 MG TABLET PO SCH (08:35)
[2017-08-25] MEDS: PIOGLITAZONE HCL 15 MG TABLET PO SCH (08:35)
[2017-08-25] MEDS: INSULIN GLARGINE, 100 UNIT/ML CARTRIDGE SQ SCH ×2 (08:40→08:41)
[2017-08-25] MEDS: DAKINS QUARTER STRENGTH (0.125%) 480 ML BOTTLE TOP SCH (08:43)
[2017-08-25] MEDS: CLOTRIMAZOLE 1% 15 GM TUBE TP SCH (08:44)
[2017-08-25] MEDS: HYDROCODONE/APAP 10/325MG 1 EA TABLET PO PRN (09:21)
[2017-08-25] MEDS ORDERED: SULF1TAB48 PO (11:37)
[2017-08-25] MEDS ORDERED: CLOT15CR35 TP (11:37)
[2017-08-25] MEDS ORDERED: APIX5TAB PO (11:37)
--- NOTE | 2017-08-25 13:30 | NUR ---
RN NOTES PATIENT WITH DISCHARGE ORDERS, PICTURES OF SKIN TAKEN AND PLACED IN CHART, WILL CONTINUE TO ASSIST WITH DISCHARGE PROCESS
--- NOTE | 2017-08-25 13:44 | NUR ---
RN NOTES REPORT GIVEN TO STEPHANI RN CITY BUS DRIVER AT [facility] WILL CONTINUE TO MONITOR
--- NOTE | 2017-08-25 15:30 | NUR ---
MS RN NOTES PT RESTING IN BED COMFORTABLY IN BED AWAKE ALERT AND VERBALLY RESPONSIVE, CONFUSED,ABLE TO MAKE NEEDS KNOWN.RESPIRATIONS EVEN AND UNLABORED, TOLERATING ROOM AIR 98% NOT IN RESPIRATORY DISTRESS. STABLE CONDITION. IV ACCESS AND ID BAND REMOVED, REPORT GIVEN TO SNF AND AMBULANCE TRANSPORT, DISCHARGED IN STABLE CONDITION
== END 2017-08-25 15:30 | DRG 854 ==
LOC: ER 12:20 → TELE 17:38 → MED 18:54
PROVIDERS: ADMIT Nurse Practitioner Acute Care; ATTEND Nurse Practitioner Acute Care
PROC: 0JBB0ZZ Excision of Perineum Subcutaneous Tissue and Fascia, Open Approach (ICD-10-PCS; principal; 2017-08-20)
PROC: 0D9Q0ZZ Drainage of Anus, Open Approach (ICD-10-PCS; 2017-08-20)
DX: A41.9 Sepsis, unspecified organism (principal); L03.315 Cellulitis of perineum; E44.1 Mild protein-calorie malnutrition; F03.90 Unspecified dementia, unspecified severity, without behavioral disturbance, psychotic disturbance, mood disturbance, and anxiety; L02.222 Furuncle of back [any part, except buttock and flank]; E11.9 Type 2 diabetes mellitus without complications; E78.5 Hyperlipidemia, unspecified; L02.31 Cutaneous abscess of buttock; L03.317 Cellulitis of buttock; Z79.84 Long term (current) use of oral hypoglycemic drugs; Z79.4 Long term (current) use of insulin; Z79.899 Other long term (current) drug therapy; I10 Essential (primary) hypertension
CPT/HCPCS: 36415; 71045-TC; 72193-TC; 80048-TC; 80053-TC; 80061-TC; 80076-TC; 80202-TC; 82962-TC; 83605-TC; 83735-TC; 84100-TC; 84443-TC; 84484-TC; 85025-TC; 85730-TC; 87040-TC; 87070-TC; 87081-TC; 87186-TC; A4606; A6253; A6402; A6407; J1815; J2060; J2270; J2543; J3370; J7030; J7040; J7050; J7060; Q9967; Z7610

== ENCOUNTER 2017-10-27 11:09 | Inpatient (IN) | payer MEDICARE, MEDICAID ==
[~2017-10-27] VITALS: Ht 170.2 cm; Wt 76.2 kg
--- NOTE | 2017-10-27 10:00 | NUR ---
RN NOTES PT WAS BROUGHT TO UNIT BY LINE WALKER FROM [facility] ON A GURNEY. PT IS AWAKE AND ALERT, ORIENTED TO PERSON ONLY. PT ON RA, RESPIRATIONS ARE EVEN AND LABORED. PT APPEARS TO BE VERY ANXIOUS AND CONFUSED TO HIS LOCATION. REORIENTED PATIENT NEEDED. IV ON RAC INTACT AND PATENT. SAFETY MEASURES ARE IN PLACE, CALL LIGHT IS IN REACH. WILL CONTINUE TO MONITOR.
[~2017-10-27 11:09] MED LIST: ACET-868 PO; APIX5TAB PO; ATOR40TA PO; BISA10SU8 RC; CLOT15CR35 TP; DOCU100C36 PO; DONE5TAB34 PO; INSU100I30 SQ; MAGN400O6 GT; MEMA10TA PO; METF-442 PO; NA P133E RC; SULF1TAB48 PO
[2017-10-27] MEDS ORDERED: MAG HYDROX/AL HYDROX/SIMETH 30 ML UDC PO PRN (12:00)
[2017-10-27] MEDS ORDERED: MAGNESIUM HYDROXIDE 30 ML UDC PO PRN (12:00)
[2017-10-27] MEDS ORDERED: ACETAMINOPHEN 325 MG TABLET PO PRN (12:00)
[2017-10-27] MEDS ORDERED: Z GUARD REMEDY 2 OZ OINT TP PRN (12:00)
[2017-10-27 12:15] LABS: EOSINOPHILS % (AUTO) 0.2 % (0.0-6.0); HEMATOCRIT 36 % (39-51); HEMOGLOBIN 12.3 g/dL (13.5-17.5); LYMPHOCYTES # (AUTO) 0.8 /CMM (0.8-4.8); LYMPHOCYTES % (AUTO) 4.9 % (20.0-44.0); MEAN CORPUSCULAR HGB CONC 34 g/dl (31.0-36.0); MEAN CORPUSCULAR VOLUME 92 fL (80-96); MONOCYTES # (AUTO) 1.1 /CMM (0.1-1.30); MONOCYTES % (AUTO) 6.7 % (2.0-12.0); NEUTROPHILS # (AUTO) 13.9 /CMM (1.8-8.9); NEUTROPHILS % (AUTO) 88.2 % (43.0-81.0); PLATELET COUNT (AUTO) 226 /CMM (150-450); RDW COEFFICIENT OF VARIATION 15.9 (11.5-15.0); RED BLOOD CELL COUNT(AUTO) 3.93 MIL/uL (4.5-6.0); WHITE BLOOD COUNT (AUTO) 15.8 K/uL (4.3-11.0)
[2017-10-27] MEDS: IV NS 0.9% 1,000 ML IV PRN (12:25)
--- NOTE | 2017-10-27 12:56 | NUR ---
RN NOTES PT ATTEMPTING TO GET OUT OF BED DUE TO CONFUSION. BED ALARM IS ON. SPOKE WITH TALENT MANAGEMENT SPECIALIST TO MOVE PT TO 320, SO HE WOULD BE CLOSER TO SITTER. SAFETY MEASURES ARE IN PLACE, WILL CONTINUE TO MONITOR.
[2017-10-27 12:57] LABS: ALANINE AMINOTRANSFERASE 31 U/L (12-78); ALBUMIN 3.2 g/dL (3.4-5.0); ALKALINE PHOSPHATASE 53 U/L (46-116); ASPARTATE AMINOTRANSFERASE 28 U/L (15-37); BILIRUBIN,TOTAL 0.7 mg/dL (0.2-1.0); CARBON DIOXIDE 24 mmol/L (21-32); CHLORIDE 102 mmol/L (98-107); CREATININE 0.8 mg/dL (0.6-1.3); GLUCOSE 166 mg/dL (74-106); MAGNESIUM 1.8 mg/dL (1.8-2.4); PHOSPHORUS 2.6 mg/dL (2.5-4.9); POTASSIUM 3.1 mmol/L (3.5-5.1); SODIUM SERUM 141 mmol/L (136-145); THYROID STIMULATING HORMONE 2.187 uIU/mL (0.358-3.74); TOTAL PROTEIN, SERUM 7.5 g/dL (6.4-8.2); TROPONIN I < 0.017 ng/mL (0.00-0.056); UREA NITROGEN, BLOOD 12 mg/dL (7-18)
[2017-10-27] MEDS ORDERED: IV NS 0.9% 500 ML IV ONE ×2 (13:30→17:30)
[2017-10-27] MEDS ORDERED: IV NS 0.9% 500 ML BAG IV ONE (13:30)
--- NOTE | 2017-10-27 13:30 | NUR ---
RN NOTES PT PULLED OUT IV. UNABLE TO GIVE BOLUS AT THIS TIME. WILL GIVE BOLUS WHEN PT HAS SITTER AND IV IS ABLE TO BE REINSERTED. ENCOURAGING PO INTAKE
[2017-10-27] MEDS ORDERED: BISACODYL SUPP (10 MG) 10 MG/SUPP.RECT SUPP.RECT RC PRN (14:30)
[2017-10-27] MEDS ORDERED: POTASSIUM CHLORIDE 20 MEQ TAB.PRT.SR PO ONE (14:30)
[2017-10-27] MEDS ORDERED: DEXTROSE 50%-WATER 50 ML DISP.SYRIN IV PRN (14:30)
[2017-10-27] MEDS: HYDROCODONE/APAP 5/325MG 1 EACH TABLET PO PRN (15:42)
[2017-10-27 16:00] VITALS: BP 149/69
[2017-10-27] MEDS ORDERED: APIXABAN 5 MG TABLET PO SCH (17:00)
[2017-10-27] MEDS: CLOTRIMAZOLE 1% 15 GM TUBE TP SCH (17:00)
[2017-10-27] MEDS ORDERED: APIXABAN 5 MG TABLET PO ONE (17:00)
--- NOTE | 2017-10-27 17:00 | NUR ---
RN NOTES LACTIC ACID CAME BACK 2.5. MD MADE AWARE, ORDERED ANOTHER 500ML BOLUS. WILL GIVE BOLUS AND ORDER NEW LACTIC ACID LAB TO BE DONE AFTER.
[2017-10-27] MEDS: MEMANTINE HCL 5 MG TABLET PO SCH (17:53)
[2017-10-27] MEDS: BLOOD SUGAR DIAGNOSTIC 1 EACH STRIP IN SCH ×2 (17:53→21:06)
[2017-10-27] MEDS: INSULIN REGULAR, HUMAN 100 UNIT/ML 3 ML VIAL SQ PRN ×2 (17:54→21:25)
--- NOTE | 2017-10-27 18:54 | NUR ---
RN NOTES PT IS SITTING UP IN BED, DOZING INTERMITTENTLY. PT ON RA, RESPIRATIONS ARE EVEN AND UNLABORED. TELE MONITOR IN PLACE, READING SR 81. IV ON LAC INTACT AND RUNNING NS @ 75ML/HR. SOFT WRIST RESTRAINTS ARE IN PLACE, SKIN SHOWS NO SIGNS OF IRRITATION OR BREAKDOWN. NO SIGNS OF DISTRESS NOTED. SAFETY MEASURES ARE IN PLACE, CALL LIGHT IS IN REACH. WILL ENDORSE TO SHINGLE CARRIER RN FOR CONTINUITY OF CARE.
--- NOTE | 2017-10-27 19:20 | NUR ---
RECREATIONAL ASSISTANT OPENING NOTES: RECEIVED PT IN BED AND IS A/OX1. PT IS ON ROOM AIR. PT ASLEEP AT THIS TIME AND IS ON HIGH CLANCY'S POSITION. PT HAS TELE BOX AND READING SHOWS SR. PT HAS BILATERAL SOFT WRIST RESTRAINTS. PT HAS IV ON L AC #22G AND IS BEING INFUSED WITH NS AT 75ML/HR. BED ALARM ACTIVATED. CALL LIGHT WITHIN PT'S REACH. BED KEPT IN LOW, LOCKED POSITION, AND SIDE RAILS X 2UP. WILL CONTINUE TO MONITOR PT.
[2017-10-27 20:30] VITALS: BP 105/54
[2017-10-27] MEDS: ATORVASTATIN 40 MG TABLET PO SCH (21:06)
[2017-10-27] MEDS: DONEPEZIL 5 MG TABLET PO SCH (21:06)
[2017-10-27] MEDS: ONDANSETRON HCL/PF 4 MG/2 ML VIAL IVP PRN (22:17)
--- NOTE | 2017-10-27 22:20 | NUR ---
ASSEMBLY LINE WORKER NOTES: PT ADMINISTERED ZOFRAN VIA IV. PT WAS FOUND WITH ONE SMALL EPISODE OF EMESIS FOUND ON HIS GOWN.
[2017-10-28] MEDS: IV NS 0.9% 1,000 ML IV PRN (00:03)
[2017-10-28 00:24] VITALS: BP 137/67
--- NOTE | 2017-10-28 03:24 | NUR ---
MANAGER STATISTICS NOTES: SPOKE WITH HEALTH INSURANCE AGENT YARI JAUREGUI AND INFORMED HIM THAT PT HAD ONE COFFEE GROUND EMESIS AND ALSO FOUND BLOOD IN HIS URINE. PER YASMANY JAUREGUI, TO KEEP HIM NPO. ALSO TO CHANGE FLUIDS D5NS AT 75ML/HR.
[2017-10-28] MEDS: IV D5/ 0.9% NACL 1,000 ML IV PRN (03:41)
[2017-10-28 04:00] VITALS: BP 137/66
[2017-10-28] MEDS: ONDANSETRON HCL/PF 4 MG/2 ML VIAL IVP PRN (04:17)
--- NOTE | 2017-10-28 04:17 | NUR ---
CASE BRIEFER NOTES: PT HAD DARK BROWN EMESIS. PT SUCTIONED. PT WAS ADMINISTERED ZOFRAN IV. WILL CONTINUE TO MONITOR PT.
[2017-10-28] MEDS: CEFTRIAXONE 1 G in IV NS 0.9% 50 ML IV SCH (05:12)
[2017-10-28] MEDS: BLOOD SUGAR DIAGNOSTIC 1 EACH STRIP IN SCH ×4 (06:08→23:16)
[2017-10-28] MEDS: INSULIN REGULAR, HUMAN 100 UNIT/ML 3 ML VIAL SQ PRN ×4 (06:13→23:35)
--- NOTE | 2017-10-28 06:35 | NUR ---
DIRECTOR COMMUNITY HEALTH NURSING NOTES: BLOOD SUGAR WAS 268. PT IS NPO. PT IS ON IV FLUID IV D5NS AT 75ML/HR. PT WAS ADMINISTERED 6 UNITS OF INSULIN. WILL CONTINUE TO MONITOR PT.
[2017-10-28 06:52] LABS: APPEARANCE,URINE TURBID (CLEAR); BILIRUBIN,URINE NEGATIVE (NEGATIVE); BLOOD, URINE 3+ Ery/uL (NEGATIVE); COLOR,URINE AMBER (YELLOW); KETONES,URINE 1+ (NEGATIVE); LEUKOCYTE ESTERASE ,URINE 3+ (NEGATIVE); NITRITE, URINE NEGATIVE (NEGATIVE); PH,URINE 6.5 (5.0-8.0); PROTEIN,URINE 1+ mg/dl (NEGATIVE); UGLUCOSE TRACE mg/dL (NEGATIVE)
[2017-10-28 06:55] LABS: BACTERIA,URINE Rare /HPF (None Seen); RBC,URINE TOO NUMEROUS TO COUN /HPF (0-2); WBC,URINE 21-50 /HPF (0-3)
[2017-10-28 06:56] LABS: SQUAMOUS EPITHELIAL CELL,UR 0-2 /HPF (None Seen)
--- NOTE | 2017-10-28 07:06 | NUR ---
C WEB DEVELOPER CLOSING NOTES: ALL NEEDS WERE ATTENDED AND ANTICIPATED FOR. PT IS A/OX1 AND IS CONFUSED. PT HAS TO BE REORIENTED MULTIPLE TIMES. PT ON 7LPM VIA SIMPLE MASK. PT HAS SUCTION SET UP. PT ON TELE BOX AND READING SHOWS SR 80S WITH PVCS. PT KEPT NPO ONCE ORDERED. PT HAS L AC #22G AND IS BEING INFUSED WITH D5NS AT 75ML/HR. PT KEPT IN HIGH CLANCY'S POSITION. BED ALARM ACTIVATED. PT HAS BILATERAL SOFT WRIST RESTRAINTS. 2HR CHECKS PERFORMED. CALL LIGHT WITHIN PT'S REACH. BED KEPT IN LOW, LOCKED POSITION, AND SIDE RAILS X 2UP. WILL ENDORSE TO AM NURSE FOR LEVY.
--- NOTE | 2017-10-28 07:52 | NUR ---
LOAD PLANNER/OPENING NOTES RECEIVED PT. IN BED A&OX1, CONFUSED. BREATHING UNLABORED ON OXYGEN USING A SIMPLE MASK AT 6L/MIN WITH AN SPO2 AT 91%. NO S/S OF ACUTE DISTRESS. PT. HAS BILATERAL SOFT WRIST RESTRAINTS ON. PT. IS NPO DUE TO 2 EMESIS EPISODES LAST NIGHT. PER NURSE PT. HAD BLOOD IN URINE, AND URINE SAMPLE WAS TAKEN TO THE LAB FOR UA AND CULTURE. BED IS IN LOWEST, AND LOCKED POSITION. 2 SIDE RAILS UP. CALL LIGHT WITHIN REACH. ALL NEEDS MET. WILL CONTINUE TO ASSESS AND MONITOR.
--- NOTE | 2017-10-28 07:55 | NUR ---
TELE READING AT THIS TIME IS SINUS TACHYCARDIA 106 BPM.
[2017-10-28 08:00] VITALS: BP 133/73
[2017-10-28 08:12] LABS: EOSINOPHILS % (AUTO) 0.3 % (0.0-6.0); HEMATOCRIT 37 % (39-51); HEMOGLOBIN 12.7 g/dL (13.5-17.5); LYMPHOCYTES # (AUTO) 0.3 /CMM (0.8-4.8); LYMPHOCYTES % (AUTO) 2.9 % (20.0-44.0); MEAN CORPUSCULAR HGB CONC 34 g/dl (31.0-36.0); MEAN CORPUSCULAR VOLUME 92 fL (80-96); MONOCYTES # (AUTO) 0.6 /CMM (0.1-1.30); MONOCYTES % (AUTO) 5.1 % (2.0-12.0); NEUTROPHILS # (AUTO) 10.2 /CMM (1.8-8.9); NEUTROPHILS % (AUTO) 91.7 % (43.0-81.0); PLATELET COUNT (AUTO) 221 /CMM (150-450); RDW COEFFICIENT OF VARIATION 15.6 (11.5-15.0); RED BLOOD CELL COUNT(AUTO) 4.04 MIL/uL (4.5-6.0); WHITE BLOOD COUNT (AUTO) 11.1 K/uL (4.3-11.0)
[2017-10-28 08:20] LABS: CALCIUM, SERUM 8.3 mg/dL (8.5-10.1); CREATININE 0.7 mg/dL (0.6-1.3); POTASSIUM 3.1 mmol/L (3.5-5.1)
[2017-10-28] MEDS: MEMANTINE HCL 5 MG TABLET PO SCH ×3 (09:00→18:18)
[2017-10-28] MEDS: DOCUSATE SODIUM 100 MG CAPSULE PO SCH ×2 (09:00→10:21)
[2017-10-28] MEDS: INSULIN GLARGINE, 100 UNIT/ML CARTRIDGE SQ SCH (09:00)
[2017-10-28 10:08] LABS: THYROID STIMULATING HORMONE 1.056 uIU/mL (0.358-3.74)
[2017-10-28] MEDS: CLOTRIMAZOLE 1% 15 GM TUBE TP SCH ×2 (10:21→18:18)
[2017-10-28] MEDS: HYDROCODONE/APAP 5/325MG 1 EACH TABLET PO PRN (11:35)
[2017-10-28] MEDS: POTASSIUM CL. PREMIX PERIPHER. 50 ML IV SCH ×4 (11:36→14:33)
[2017-10-28 12:00] VITALS: BP 121/66
[2017-10-28] MEDS: PANTOPRAZOLE 40 MG TABLET.DR PO SCH (13:17)
[2017-10-28 15:21] LABS: ABG BASE EXCESS -0.3 mmol/L; ABG OXYGEN SATURATION 93.3 % (92.0-98.5); ABG PCO2 35.4 mmHg (35.0-45.0); ABG PH 7.439 (7.350-7.450); ABG PO2 67.8 mmHg (75.0-100.0); AaDO2 147.8 mmHg; COHb 0.3 % (0.5-1.5); MetHb 0.5 % (0.0-1.5); O2Hb 92.6 % (94.0-97.0); SITE, ABG Left Radial; VENT MODE, BG NASAL CANNULA
[2017-10-28 16:00] VITALS: BP 131/73
--- NOTE | 2017-10-28 19:30 | NUR ---
MS RN INITIAL NOTE PT RECEIVED ASLEEP BUT EASILY AROUSABLE TO NAME. NOTED WITH SOME EPISODES OF CONFUSION BUT ABLE TO MAKE SOME NEEDS KNOWN. ON 4L OF O2 VIA NC AND SATURATING WELL. IV LAC #22 CLEAN AND DRY WITH FLUIDS INFUSING. BILATERAL SOFT WRIST RESTRAINTS IN PLACE WITH CIRCULATION CHECKED AND PULSES PALPABLE BILATERALLY. HOB ELEVATED. WILL CONTINUE TO MONITOR.
--- NOTE | 2017-10-28 19:53 | NUR ---
RN CLOSING NOTES PT. IS IN BED A&OX1, CONFUSED. BREATHING UNLABORED ON OXYGEN AT 4L/MIN VIA NASAL CANNULA. NO S/S OF ACUTE DISTRESS. PT. HAS BILATERAL SOFT WRIST RESTRAINTS ON. IV ACCESS IS INTACT, AND PATENT. PT. WAS REORIENTED THROUGHOUT THE DAY, AND REPOSITIONED. BED IS IN LOWEST, AND LOCKED POSITION. 2 SIDE RAILS UP. CALL LIGHT WITHIN REACH. ALL NEEDS MET. WILL ENDORSE REPORT TO NURSE. ALL NEEDS MET. WILL ENDORSE REPORT TO NURSE. PT.'S FAMILY BROUGHT PT.'S ELIQUIS.
[2017-10-28 20:00] VITALS: BP 120/77
[2017-10-28] MEDS: ATORVASTATIN 40 MG TABLET PO SCH (23:16)
[2017-10-28] MEDS: DONEPEZIL 5 MG TABLET PO SCH (23:17)
--- NOTE | 2017-10-29 04:34 | NUR ---
RN NOTE PT REFUSED EKG AT THIS TIME. INFORMED PT OF RISKS AND BENEFITS AND PT STILL REFUSED. WILL TRY AGAIN AT A LATER TIME.
[2017-10-29] MEDS: CEFTRIAXONE 1 G in IV NS 0.9% 50 ML IV SCH (05:06)
--- NOTE | 2017-10-29 06:38 | NUR ---
MS RN CLOSING NOTE PT REMAINED STABLE DURING SHIFT. NO ACUTE DISTRESS NOTED. PT AGREED TO DO EKG. MORE ALERT THIS MORNING AND ANSWERING APPROPRIATELY. ALL NEEDS ATTENDED TO PROMPTLY. KEPT CLEAN AND DRY. REPOSITIONED Q2H. WILL ENDORSE TO NEXT SHIFT FOR CONTINUITY OF CARE.
[2017-10-29] MEDS: INSULIN REGULAR, HUMAN 100 UNIT/ML 3 ML VIAL SQ PRN ×4 (07:35→22:01)
[2017-10-29] MEDS: BLOOD SUGAR DIAGNOSTIC 1 EACH STRIP IN SCH ×4 (07:35→21:56)
[2017-10-29 08:00] VITALS: BP_SYST 123; BP_SYST 134; BP_SYST 135; BP_DIAS 74; BP_DIAS 75; BP_DIAS 88
[2017-10-29] MEDS: DOCUSATE SODIUM 100 MG CAPSULE PO SCH (08:50)
[2017-10-29] MEDS: MEMANTINE HCL 5 MG TABLET PO SCH ×2 (08:50→16:52)
[2017-10-29] MEDS: PANTOPRAZOLE 40 MG TABLET.DR PO SCH (08:50)
--- NOTE | 2017-10-29 08:50 | NUR ---
m/s ultrasonographer: neuro consult seen by dr. merino at this time. held am meds due to pt very sleepy, but arousable. will continue to monitor.
[2017-10-29] MEDS ORDERED: FEE PK DOSING 1 MIN EA MC ONE (08:51)
[2017-10-29] MEDS: INSULIN GLARGINE, 100 UNIT/ML CARTRIDGE SQ SCH (09:00)
[2017-10-29] MEDS: VANCOMYCIN 1 GM in IV D5W 250 ML IV SCH ×2 (09:11→21:26)
[2017-10-29 09:38] LABS: BASOPHILS % (AUTO) 0.1 % (0.0-2.0); EOSINOPHILS % (AUTO) 0.3 % (0.0-6.0); HEMATOCRIT 34 % (39-51); HEMOGLOBIN 11.6 g/dL (13.5-17.5); LYMPHOCYTES # (AUTO) 1.2 /CMM (0.8-4.8); LYMPHOCYTES % (AUTO) 9.5 % (20.0-44.0); MEAN CORPUSCULAR HGB CONC 34 g/dl (31.0-36.0); MEAN CORPUSCULAR VOLUME 92 fL (80-96); MONOCYTES # (AUTO) 1.2 /CMM (0.1-1.30); MONOCYTES % (AUTO) 9.2 % (2.0-12.0); NEUTROPHILS # (AUTO) 10.2 /CMM (1.8-8.9); NEUTROPHILS % (AUTO) 80.9 % (43.0-81.0); PLATELET COUNT (AUTO) 229 /CMM (150-450); RDW COEFFICIENT OF VARIATION 15.2 (11.5-15.0); RED BLOOD CELL COUNT(AUTO) 3.74 MIL/uL (4.5-6.0); WHITE BLOOD COUNT (AUTO) 12.6 K/uL (4.3-11.0)
--- NOTE | 2017-10-29 09:39 | NUR ---
M/S UNDERGROUND MINER: NOTES LANTUS (LONG ACTING) NOT GIVEN DUE TO PT IS LETHARGIC AND WITH POOR APPETITE. PT REMAINS ON D5 NS AT 75ML/HR. WILL CONTINUE TO MONITOR.
[2017-10-29 10:01] LABS: ALBUMIN 2.5 g/dL (3.4-5.0); BILIRUBIN,TOTAL 0.5 mg/dL (0.2-1.0); CALCIUM, SERUM 8.4 mg/dL (8.5-10.1); CREATININE 0.6 mg/dL (0.6-1.3); MAGNESIUM 1.9 mg/dL (1.8-2.4); PHOSPHORUS 2.1 mg/dL (2.5-4.9); POTASSIUM 2.9 mmol/L (3.5-5.1); TOTAL PROTEIN, SERUM 6.4 g/dL (6.4-8.2)
--- NOTE | 2017-10-29 12:00 | NUR ---
M/S TIME STAMP ASSEMBLER: NOTES BS 151, HELD INSULIN DUE TO POOR APPETITE. WILL CONTINUE TO MONITOR.
[2017-10-29] MEDS: MEROPENEM 1 G in IV NS 0.9% 100 ML IV SCH ×2 (12:09→20:35)
[2017-10-29] MEDS: POTASSIUM CL. PREMIX PERIPHER. 50 ML IV SCH ×4 (14:04→17:19)
[2017-10-29] MEDS: IV D5/ 0.9% NACL 1,000 ML IV PRN (14:10)
--- NOTE | 2017-10-29 14:50 | NUR ---
M/S LEATHER REPAIRER: GI F/U GUNJAN (TRAILHEAD CONSTRUCTION WORKER) HERE AND INFORMED ME THAT HE WILL HAVE EGD TOMORROW AFTERNOON AND NEED A CONSENT. NOTIFIED, SPOKE TO HER OVER THE PHONE AND INFORMED HER RE: EGD TOMORROW AFTERNOON UNDER MODERATE SEDATION AND GIVEN CONSENTS ON PROCEDURE, ANESTHESIA, AND BLOOD PRODUCTS WITH ANOTHER NURSE A WITNESSED.
[2017-10-29] MEDS: CLOTRIMAZOLE 1% 15 GM TUBE TP SCH ×2 (15:27→17:19)
[2017-10-29 16:00] VITALS: BP 148/80
[2017-10-29] MEDS ORDERED: K PHOS NEUTRAL 250 MG TABLET PO ONE (16:30)
--- NOTE | 2017-10-29 16:37 | NUR ---
M/S FINANCIAL COMPLIANCE MANAGER: GI F/U SEEN BY GUNJAN JOHNSON) WITH ORDERS. ORDERS ACKNOWLEDGED.
[2017-10-29] MEDS: PANTOPRAZOLE 40 MG VIAL IV SCH (16:51)
--- NOTE | 2017-10-29 17:29 | NUR ---
M/S PROOF MACHINE OPERATOR SUPERVISOR: NOTES BS [id number]. HELD INSULIN DUE TO POOR APPETITE, PT REMAINS ON D5 NS AT 75ML/HR. REALITY ORIENTATION PROVIDED PRN. WILL CONTINUE TO MONITOR.
[2017-10-29 18:40] LABS: HEMOGLOBIN 11.5 g/dL (13.5-17.5)
--- NOTE | 2017-10-29 18:45 | NUR ---
m/s sloop captain: notes pt remains with poor appetite. needs attended. ivf infusing well. reality orientation provided prn. will continue to monitor.
[2017-10-29] MEDS: SOD FERRIC GLUC 125 MG in IV NS 0.9% 100 ML IV SCH (19:27)
[2017-10-29 20:07] VITALS: BP 144/82
[2017-10-29] MEDS: DONEPEZIL 5 MG TABLET PO SCH (21:26)
[2017-10-29] MEDS: ATORVASTATIN 40 MG TABLET PO SCH (21:26)
[2017-10-30] MEDS: MEROPENEM 1 G in IV NS 0.9% 100 ML IV SCH ×2 (05:14→12:29)
[2017-10-30] MEDS: IV D5/ 0.9% NACL 1,000 ML IV PRN (06:06)
[2017-10-30 07:21] LABS: EOSINOPHILS % (AUTO) 0.7 % (0.0-6.0); HEMATOCRIT 31 % (39-51); HEMOGLOBIN 10.6 g/dL (13.5-17.5); LYMPHOCYTES # (AUTO) 1.1 /CMM (0.8-4.8); LYMPHOCYTES % (AUTO) 9.6 % (20.0-44.0); MEAN CORPUSCULAR HGB CONC 35 g/dl (31.0-36.0); MEAN CORPUSCULAR VOLUME 91 fL (80-96); MONOCYTES # (AUTO) 1.1 /CMM (0.1-1.30); MONOCYTES % (AUTO) 9.8 % (2.0-12.0); NEUTROPHILS # (AUTO) 9.3 /CMM (1.8-8.9); NEUTROPHILS % (AUTO) 79.9 % (43.0-81.0); PLATELET COUNT (AUTO) 224 /CMM (150-450); RDW COEFFICIENT OF VARIATION 15.7 (11.5-15.0); RED BLOOD CELL COUNT(AUTO) 3.38 MIL/uL (4.5-6.0); WHITE BLOOD COUNT (AUTO) 11.6 K/uL (4.3-11.0)
[2017-10-30] MEDS: BLOOD SUGAR DIAGNOSTIC 1 EACH STRIP IN SCH ×4 (07:30→22:00)
[2017-10-30 07:54] LABS: CALCIUM, SERUM 8.1 mg/dL (8.5-10.1); CREATININE 0.6 mg/dL (0.6-1.3); PHOSPHORUS 2.2 mg/dL (2.5-4.9)
[2017-10-30 08:00] VITALS: BP 138/73
--- NOTE | 2017-10-30 08:29 | NUR ---
RN OPENING NOTES PT. IS IN BED A&OX1, CONFUSED. BREATHING UNLABORED ON OXYGEN AT 3L/MIN VIA NASAL CANNULA. NO S/S OF ACUTE DISTRESS. PT. HAS BILATERAL SOFT WRIST RESTRAINTS ON. IV ACCESS IS INTACT, AND PATENT NO REDNESS OR INFILTRATION NOTED. BED IS IN LOWEST, AND LOCKED POSITION. SIDE RAILS UPX2. CALL LIGHT WITHIN REACH. ALL NEEDS MET. WILL CONTINUE TO MONITOR
[2017-10-30 08:40] LABS: POTASSIUM 2.8 mmol/L (3.5-5.1)
[2017-10-30] MEDS: DOCUSATE SODIUM 100 MG CAPSULE PO SCH (08:41)
[2017-10-30] MEDS: MEMANTINE HCL 5 MG TABLET PO SCH ×2 (08:41→17:31)
[2017-10-30] MEDS: INSULIN GLARGINE, 100 UNIT/ML CARTRIDGE SQ SCH (09:00)
[2017-10-30] MEDS: VANCOMYCIN 1 GM in IV D5W 250 ML IV SCH ×2 (09:51→21:25)
[2017-10-30] MEDS: PANTOPRAZOLE 40 MG VIAL IV SCH ×2 (09:53→17:44)
[2017-10-30] MEDS: CLOTRIMAZOLE 1% 15 GM TUBE TP SCH ×2 (10:05→17:47)
[2017-10-30] MEDS ORDERED: POTASSIUM CHLORIDE 20 MEQ TAB.PRT.SR PO SCH (10:30)
[2017-10-30] MEDS ORDERED: Potassium Chloride 10 MEQ in IV D5W 50 ML IV SCH (10:30)
[2017-10-30] MEDS: POTASSIUM CL. PREMIX PERIPHER. 50 ML IV SCH ×6 (12:02→18:53)
[2017-10-30] MEDS: INSULIN REGULAR, HUMAN 100 UNIT/ML 3 ML VIAL SQ PRN ×2 (12:35→17:44)
[2017-10-30] MEDS ORDERED: K PHOS NEUTRAL 250 MG TABLET PO ONE ×2 (13:30→17:30)
[2017-10-30] MEDS ORDERED: ANESTHESIA TRAY IN PYXIS 1 EA TRAY MC ONE (13:47)
--- NOTE | 2017-10-30 15:12 | NUR ---
RN NOTES PATIENT TAKEN FOR EGD WILL CONTINUE TO MONITOR UPON RETURN TO UNIT
[2017-10-30] MEDS ORDERED: ETOMIDATE 2 MG/ML VIAL ONE (15:35)
[2017-10-30 16:00] VITALS: BP 131/64
--- NOTE | 2017-10-30 16:00 | NUR ---
RN NOTES PT BACK FROM PROCEDURE, WILL CONTINUE TO MONITOR, KPHOS NOT GIVEN PREVIOUSLY ADMINISTERED PT NPO PHARMACY AWARE WILL REORDER
[2017-10-30 16:15] VITALS: BP 134/70
[2017-10-30 16:30] VITALS: BP 130/68
[2017-10-30 17:30] VITALS: BP_SYST 138; BP_SYST 144; BP_DIAS 72; BP_DIAS 73
[2017-10-30] MEDS: PIPERACILLIN /TAZOBACTAM 4.5 G in IV D5W 50 ML IV SCH (18:15)
[2017-10-30] MEDS: SOD FERRIC GLUC 125 MG in IV NS 0.9% 100 ML IV SCH (18:39)
--- NOTE | 2017-10-30 18:58 | NUR ---
RN CLOSING NOTES PT. IS IN BED A&OX1, CONFUSED. BREATHING UNLABORED ON OXYGEN AT 3L/MIN VIA NASAL CANNULA. NO S/S OF ACUTE DISTRESS. PT. HAS BILATERAL SOFT WRIST RESTRAINTS ON. IV ACCESS IS INTACT, AND PATENT NO REDNESS OR INFILTRATION NOTED. BED IS IN LOWEST, AND LOCKED POSITION. SIDE RAILS UPX2. CALL LIGHT WITHIN REACH. ALL NEEDS MET. WILL CONTINUE TO MONITOR AND ENDORSE FOR CONTINUITY OF CARE
--- NOTE | 2017-10-30 19:30 | NUR ---
MS RN OPENING NOTE Patient was seen in bed AAOx1, breathing on 2L O2 NC with no SOB, and no signs of acute distress. D5NS at 75ml/hr is running through the right FA. Bed is in low/locked position, two side rails up, and call callahan within reach. Sitter is at bedside. Patient has no immediate needs at this time. Will continue to monitor.
[2017-10-30 20:00] VITALS: BP 110/69
[2017-10-30] MEDS: DONEPEZIL 5 MG TABLET PO SCH (21:25)
[2017-10-30] MEDS: ATORVASTATIN 40 MG TABLET PO SCH (21:25)
[2017-10-31] MEDS: PIPERACILLIN /TAZOBACTAM 4.5 G in IV D5W 50 ML IV SCH ×3 (00:50→12:01)
[2017-10-31] MEDS: IV D5/ 0.9% NACL 1,000 ML IV PRN (02:44)
--- NOTE | 2017-10-31 06:53 | NUR ---
MS RN CLOSING NOTE Patient was seen in bed AAOx1, breathing on 3L O2 NC with no SOB, and no signs of acute distress. Patient slept intermittently overnight, experiencing occasional episodes of confusion and paranoia regarding medical treatment (i.e. refusing to wear NC, not trusting that he was actually receiving oxygen; voicing distrust in staff). Order for restraints is active and at the bedside, but they were not required this shift. Patient has 1:1 sitter. D5NS at 75ml/hr is running through the right FA. Bed is in the low/locked position, two side rails up, call callahan within reach. Patient care has been endorsed to day shift nurse.
[2017-10-31] MEDS: BLOOD SUGAR DIAGNOSTIC 1 EACH STRIP IN SCH ×2 (06:56→12:00)
--- NOTE | 2017-10-31 07:01 | NUR ---
MS RN NOTE - AccuCheck down AccuCheck not working; per picker, lab to collect/check glucose level.
[2017-10-31 07:32] LABS: CALCIUM, SERUM 8.1 mg/dL (8.5-10.1); CREATININE 0.6 mg/dL (0.6-1.3); PHOSPHORUS 2.2 mg/dL (2.5-4.9); POTASSIUM 3.1 mmol/L (3.5-5.1)
--- NOTE | 2017-10-31 07:42 | NUR ---
RN OPENING NOTES RECEIVED PT. PT IS STABLE AND RESTING IN BED, A/OX1. PT IS ANXIOUS AND SLIGHTLY CONFUSED. NO S/S OF RESP DISTRESS OR SOB. NO C/O PAIN AT THIS TIME. SAFETY MEASURES IN PLACE, CALL LIGHT WITHIN REACH. WILL CONTINUE TO MONITOR.
[2017-10-31 08:00] VITALS: BP 138/76
[2017-10-31] MEDS: PANTOPRAZOLE 40 MG VIAL IV SCH (08:29)
[2017-10-31] MEDS: VANCOMYCIN 1 GM in IV D5W 250 ML IV SCH (08:29)
[2017-10-31] MEDS: POTASSIUM CHLORIDE 20 MEQ TAB.PRT.SR PO SCH ×3 (08:30→11:58)
[2017-10-31] MEDS: MEMANTINE HCL 5 MG TABLET PO SCH (08:30)
[2017-10-31] MEDS: DOCUSATE SODIUM 100 MG CAPSULE PO SCH (08:30)
[2017-10-31] MEDS ORDERED: LACTOBACILLUS RHAMNOSUS GG 1 EACH CAP.SPRINK PO SCH (09:00)
[2017-10-31] MEDS: INSULIN GLARGINE, 100 UNIT/ML CARTRIDGE SQ SCH (09:00)
[2017-10-31] MEDS: INSULIN REGULAR, HUMAN 100 UNIT/ML 3 ML VIAL SQ PRN (09:28)
[2017-10-31] MEDS: CLOTRIMAZOLE 1% 15 GM TUBE TP SCH (09:38)
--- NOTE | 2017-10-31 09:59 | NUR ---
RN NOTES PT REFUSING BREAKFAST, AM INSULIN LANTUS AND REGULAR SLIDING SCALE COVERAGE NOT GIVEN. WILL CONTINUE TO MONITOR.
[2017-10-31] MEDS ORDERED: K PHOS NEUTRAL 250 MG TABLET PO ONE (11:30)
--- NOTE | 2017-10-31 16:03 | NUR ---
DISCHARGE NOTE PT DISCHARGED TO [facility]. PT IS STABLE, VSS, NO S/S OF RESP DISTRESS OR SOB. PT HAS NO C/O PAIN AT THIS TIME. ALL DISCHARGE PAPERWORK AND BELONGINGS LIST SIGNED/COPIED/PLACED IN CHART. DISCHARGE TEACHING PERFORMED, PT UNABLE TO VERBALIZE UNDERSTANDING. DISCHARGE INSTRUCTIONS AND TEACHING GIVEN TO BOTH STAFF SONOGRAPHER TRANSPORTATION AND CINDY BRAGA OF [facility] DURING REPORT. IV ACCESS LEFT IN PLACE IN ORDER TO COMPLETE IV ABX THERAPY AT ARU. ID BAND REMOVED. PHOTOS OF WOUNDS TAKEN AND PLACED IN CHART. PT LEFT HOSPITAL IN AMBULANCE WITH STAFF SONOGRAPHER TRANSPORTATION.
== END 2017-10-31 15:15 | DRG 871 ==
LOC: MED 11:09 → TELE 16:45 → MED 10-28 11:29
PROVIDERS: ADMIT Nurse Practitioner Acute Care; ATTEND Nurse Practitioner Acute Care
PROC: 0DB68ZX Excision of Stomach, Via Natural or Artificial Opening Endoscopic, Diagnostic (ICD-10-PCS; 2017-10-30)
PROC: 0DB58ZX Excision of Esophagus, Via Natural or Artificial Opening Endoscopic, Diagnostic (ICD-10-PCS; principal; 2017-10-30 15:30)
DX: A41.9 Sepsis, unspecified organism (principal); J96.91 Respiratory failure, unspecified with hypoxia; J69.0 Pneumonitis due to inhalation of food and vomit; G93.41 Metabolic encephalopathy; L89.159 Pressure ulcer of sacral region, unspecified stage; E46 Unspecified protein-calorie malnutrition; K29.71 Gastritis, unspecified, with bleeding; E87.2 Acidosis; N39.0 Urinary tract infection, site not specified; W18.30XA Fall on same level, unspecified, initial encounter; E11.51 Type 2 diabetes mellitus with diabetic peripheral angiopathy without gangrene; R65.20 Severe sepsis without septic shock; G90.8 Other disorders of autonomic nervous system; E78.5 Hyperlipidemia, unspecified; R55 Syncope and collapse; K20.9 Esophagitis, unspecified; B95.61 Methicillin susceptible Staphylococcus aureus infection as the cause of diseases classified elsewhere; D63.8 Anemia in other chronic diseases classified elsewhere; E87.6 Hypokalemia; Z86.711 Personal history of pulmonary embolism; Z79.01 Long term (current) use of anticoagulants; F03.90 Unspecified dementia, unspecified severity, without behavioral disturbance, psychotic disturbance, mood disturbance, and anxiety; F09 Unspecified mental disorder due to known physiological condition; D50.9 Iron deficiency anemia, unspecified; L30.4 Erythema intertrigo; D72.829 Elevated white blood cell count, unspecified; K44.9 Diaphragmatic hernia without obstruction or gangrene; I10 Essential (primary) hypertension; S09.90XA Unspecified injury of head, initial encounter; Y92.89 Other specified places as the place of occurrence of the external cause
CPT/HCPCS: 36415; 36600; 71045-TC; 80048-TC; 80053-TC; 80061-TC; 81000-TC; 82728-TC; 82945-TC; 82962-TC; 83540-TC; 83605-TC; 83735-TC; 84100-TC; 84439-TC; 84443-TC; 84484-TC; 85025-TC; 85027-TC; 87040-TC; 87081-TC; 87086-TC; 88305-TC; 88313-TC; 88342; 93307-TC; 93880-TC; 93970-TC; 97116-TC; 97530-TC; A4216; A4349; A6403; C9113; J0696; J1815; J2001; J2185; J2405; J2543; J2704; J2916; J3370; J3480; J3490; J7030; J7042; J7050; J7060